=== PATIENT | female | born 1955 | race Caucasian/White ===

== ENCOUNTER 2020-07-19 08:03 | Observation (INO) ==
[2020-07-19] MEDS ORDERED: Isovue-370 500 ML BOTTLE IVP ONE (08:25)
[2020-07-19] MEDS ORDERED: Ondansetron 4 MG/2 ML VIAL IVP ONE (08:48)
[2020-07-19] MEDS ORDERED: Ondansetron 4 MG/2 ML VIAL ONE (08:48)
[2020-07-19 09:30] LABS: Basophils # 0.1 K/mcL (0.0-0.2); Basophils % 0.4 %; Eosinophils # 0.1 K/mcL (0.0-0.6); Eosinophils % 0.6 %; Hemoglobin 12.6 g/dL (11.5-15.4); Immature Granulocytes % 0.6 % (0-4); Lymphocytes # 1.3 K/mcL (0.6-4.6); Lymphocytes % 10.6 %; Mean Corpuscular HGB Conc 31.5 g/dL (31.6-35.5); Mean Corpuscular Hemoglobin 24.9 pg (28.0-33.3); Mean Corpuscular Volume 79.1 fL (83.0-100.0); Monocytes # 1.5 K/mcL (0.0-1.3); Neutrophils # 9.6 K/mcL (1.6-8.9); Platelet Count 221 K/mcL (140-400); Red Blood Count 5.06 M/mcL (3.82-4.97); Red Cell Distribution Width 17.2 % (11.5-14.5); Segmented Neutrophils % 75.8 %; White Blood Count 12.6 K/mcL (4.3-11.1)
[2020-07-19 09:41] LABS: Bilirubin,Urine Negative (Negative); Blood,Urine Moderate (Negative); Clarity,Urine Turbid (Clear); Color,Urine Yellow (Yellow); Glucose,Urine (UA) Normal (Normal); Ketones,Urine Negative (Negative); Leukocyte Esterase,Urine Negative (Negative); Nitrite,Urine Negative (Negative); PH,Urine 5.5 pH Units (5.0-8.0); Protein,Urine 30 mg/dL (Neg-Trace); Specific Gravity,Urine 1.022 (1.010-1.025); Urobilinogen,Urine Normal (Normal)
[2020-07-19 09:53] LABS: Albumin 2.7 g/dL (3.5-5.7); Albumin/Globulin Ratio 0.8 (1.1-2.2); Bilirubin,Direct 0.4 mg/dL (0.0-0.2); Bilirubin,Indirect 0.8 mg/dL (0.0-1.0); Bilirubin,Total 1.2 mg/dL (0.3-1.0); Calcium 8.9 mg/dL (8.6-10.3); Globulin 3.2 g/dL (2.4-3.5); Potassium 5.4 mEq/L (3.5-5.1); Total Protein 5.9 g/dL (6.4-8.9)
[2020-07-19 09:54] LABS: INR 1.1
[2020-07-19 09:57] LABS: Activated Partial Thrombo Time 25.9 Seconds (26.0-36.0)
[2020-07-19 10:53] LABS: Hyaline Casts,Urine Few per lpf (None Seen)
[2020-07-19 11:16] LABS: Renal Epithelial Cells,Urine Few per hpf (None-Few); Squamous Epithelial Cell,Urine Moderate per hpf (None-Few); Transitional Epi Cells,Urine Few per hpf (None-Few)
[2020-07-19 11:17] LABS: Bacteria,Urine Few per hpf (None-Few)
[2020-07-19] MEDS ORDERED: Naloxone 0.4 MG/ML INJ IVP PRN (12:10)
[2020-07-19] MEDS ORDERED: D5% in Water 1,000 ML IVC PRN (13:50)
[2020-07-19] MEDS ORDERED: Dextrose Gel 15 GM/37.5 ML TUBE PO PRN ×2 (13:50)
[2020-07-19] MEDS ORDERED: *HR* Dextrose 50 % in Water (Vial) 50 ML VIAL IVP PRN (13:50)
[2020-07-19] MEDS ORDERED: 0.9 % Sodium Chloride 1,000 ML IVC SCH (15:15)
[2020-07-19] MEDS: Albumin 25% 25gram/100mL 25 GM/100 ML IV.SOLN IVPB SCH ×2 (18:23→20:35)
[2020-07-19] MEDS: Insulin LISPRO 300 UNITS/3 ML VIAL SQ SCH (18:24)
[2020-07-20 04:40] LABS: Basophils % 0.1 %; Eosinophils % 0.2 %; Hematocrit 34.9 % (35.3-44.9); Immature Granulocytes % 0.4 % (0-4); Lymphocytes # 1.4 K/mcL (0.6-4.6); Mean Corpuscular HGB Conc 30.4 g/dL (31.6-35.5); Mean Corpuscular Hemoglobin 23.9 pg (28.0-33.3); Mean Corpuscular Volume 78.8 fL (83.0-100.0); Mean Platelet Volume 11.3 fL (9.4-12.4); Monocytes # 1.7 K/mcL (0.0-1.3); Monocytes % 11.1 %; Neutrophils # 11.9 K/mcL (1.6-8.9); Platelet Count 134 K/mcL (140-400); Red Blood Count 4.43 M/mcL (3.82-4.97); Red Cell Distribution Width 16.8 % (11.5-14.5); Segmented Neutrophils % 79.2 %
[2020-07-20 04:47] LABS: Hemoglobin 10.6 g/dL (11.5-15.4)
[2020-07-20 05:04] LABS: Calcium 8.3 mg/dL (8.6-10.3); Potassium 5.5 mEq/L (3.5-5.1)
[2020-07-20 08:01] LABS: Thyroid Stimulating Hormone 2.689 mcIU/mL (0.340-5.600)
[2020-07-20] MEDS: Insulin LISPRO 300 UNITS/3 ML VIAL SQ SCH ×3 (08:15→16:12)
[2020-07-20] MEDS: Albumin 25% 25gram/100mL 25 GM/100 ML IV.SOLN IVPB SCH ×2 (08:16→10:10)
[2020-07-20] MEDS: Apixaban 5 MG TABLET PO SCH ×4 (08:46→22:20)
[2020-07-20] MEDS: Metoprolol XL (24 HR) Succ 50 MG TAB.ER.24H PO SCH (08:47)
[2020-07-20] MEDS: Insulin DETEMIR 100 UNIT/ML X5UNITS SQ SCH ×2 (09:28→21:37)
[2020-07-20] MEDS: SODIUM ZIRCONIUM CYCLOSILICATE 5 GM POWD.PACK PO SCH (12:07)
[2020-07-20 14:06] LABS: Creatinine,Urine 129 mg/dL; Sodium, Urine < 10.0 mEq/L
[2020-07-20] MEDS ORDERED: *HR* OxyCODONE/APAP 10/325 TABLET PO PRN (15:35)
[2020-07-20 17:14] LABS: Complement C3 81 mg/dL (87-200)
[2020-07-20] MEDS ORDERED: Albumin 25% 25gram/100mL 25 GM/100 ML IV.SOLN IVPB SCH (20:00)
[2020-07-20] MEDS: Ondansetron ODT 4 MG TAB.RAPDIS SL PRN (22:20)
[2020-07-21] MEDS: Ondansetron ODT 4 MG TAB.RAPDIS SL PRN ×3 (06:25→21:27)
[2020-07-21] MEDS ORDERED: Albumin 25% 25gram/100mL 25 GM/100 ML IV.SOLN IVPB SCH ×2 (08:00→20:00)
[2020-07-21] MEDS: Insulin LISPRO 300 UNITS/3 ML VIAL SQ SCH ×3 (08:42→17:39)
[2020-07-21] MEDS: Metoprolol XL (24 HR) Succ 50 MG TAB.ER.24H PO SCH (08:43)
[2020-07-21] MEDS: Apixaban 5 MG TABLET PO SCH ×2 (08:43→21:24)
[2020-07-21] MEDS: Insulin DETEMIR 100 UNIT/ML X5UNITS SQ SCH ×2 (08:43→21:25)
[2020-07-21] MEDS: SODIUM ZIRCONIUM CYCLOSILICATE 5 GM POWD.PACK PO SCH (08:43)
[2020-07-21] MEDS ORDERED: Ondansetron 4 MG/2 ML VIAL IVP PRN (13:18)
[2020-07-21] MEDS: Haloperidol Oral Conc 10 MG/5 ML UDC PO SCH ×2 (13:41→21:26)
[2020-07-22] MEDS: Insulin DETEMIR 100 UNIT/ML X5UNITS SQ SCH ×2 (08:18→21:18)
[2020-07-22] MEDS: Ondansetron ODT 4 MG TAB.RAPDIS SL PRN (08:18)
[2020-07-22] MEDS: Metoprolol XL (24 HR) Succ 50 MG TAB.ER.24H PO SCH (08:19)
[2020-07-22] MEDS: Haloperidol Oral Conc 10 MG/5 ML UDC PO SCH (08:19)
[2020-07-22] MEDS: Insulin LISPRO 300 UNITS/3 ML VIAL SQ SCH ×3 (08:19→17:18)
[2020-07-22] MEDS: SODIUM ZIRCONIUM CYCLOSILICATE 5 GM POWD.PACK PO SCH (08:30)
[2020-07-22] MEDS: Apixaban 5 MG TABLET PO SCH (08:30)
[2020-07-23 07:40] LABS: ANA IgG by ELISA NONE DETECTED (None Detected)
[2020-07-23] MEDS: Insulin LISPRO 300 UNITS/3 ML VIAL SQ SCH ×3 (08:53→16:53)
[2020-07-23] MEDS: Metoprolol XL (24 HR) Succ 50 MG TAB.ER.24H PO SCH (08:53)
[2020-07-23] MEDS: SODIUM ZIRCONIUM CYCLOSILICATE 5 GM POWD.PACK PO SCH (08:53)
[2020-07-23] MEDS: Insulin DETEMIR 100 UNIT/ML X5UNITS SQ SCH (08:55)
[2020-07-23] MEDS ORDERED: CeFAZolin 2 GM/120 ML BAG IVPB ONE (15:52)
[2020-07-23] MEDS ORDERED: *HR* FentaNYL (PF) 100 MCG/2 ML VIAL IVP ONE (15:52)
[2020-07-23] MEDS ORDERED: *HR* Midazolam HCl 2 MG/2 ML VIAL IVP ONE (15:52)
[2020-07-23] MEDS ORDERED: 0.9 % Sodium Chloride 500 ML ONE (16:27)
[2020-07-23 16:36] VITALS: BP 135/75
[2020-07-23] MEDS ORDERED: cefTRIAXone 500 MG VIAL IM ONE (17:58)
[2020-07-23] MEDS ORDERED: Lidocaine -MPF 1% 2 ML VIAL ID ONE (18:15)
[2020-07-24 15:44] LABS: Serine Protease-3 Antibody 13 AU/mL (0-19)
[2020-07-25 06:00] LABS: Alpha 2 Globulin (PEP) 0.58 g/dL (0.48-1.05); Beta Globulin (PEP) 0.64 g/dL (0.48-1.10)
[2020-07-25 07:57] LABS: IFE Reflexed NOT DONE
== END 2020-07-23 20:10 | disposition hospice, home (50) ==
LOC: 3BNU 08:03 → EMEROOARM 08:03 → SUATTDRO 12:30 → 3BNU 14:11
PROVIDERS: ADMIT Internal Medicine; ATTEND Internal Medicine
PROC: IRDRAIN (2020-07-23 12:00)